=== PATIENT | female | born 1990 | race Caucasian/White ===

== ENCOUNTER → 2021-12-05 08:28 | Outpatient (CLI) | payer BC, SELFPAY ==
--- NOTE | ~2021-12-05 | US_ITS ---
EXAMINATION: US OB /maternal detail DATE: 12/05/2021 09:24 INDICATION: Second trimester anatomic survey TECHNIQUE: Real-time ultrasound of the pelvis was performed. COMPARISON: None. FINDINGS: There is a single living fetus in variable presentation. The placenta is anterior and 3.4 cm from the internal cervical os. A hypoechoic area of the placenta may represent a venous obrien. The cervical le ngth is 5.2 cm. heart rate is 134 beats per minute (bpm). cardiac activity and mov ement are noted. There is a 4.9 cm fibroid of the anterior uterine body. The amniotic fluid index is subjectively normal. The following anatomy was identified as normal: 4 chamber heart 3 vessel cord cord insertion kidneys urinary bladder stomach spine diaphragm ventricles cisterna magna cerebellum The following biometric data were obtained: Biparietal diameter (BPD): 4.6 cm; head circumference (HC): 17.4 cm; abdominal circumference (AC): 14 .7 cm; femur length (FL): 3.1 cm. These measurements are concordant. Estimated weight is 316 g +/- 47 g, which correlates with the 53rd percentile when 04/26/2022 is used as estimated date of delivery. As single measurements, these parameters are each equal to the following estimated gestational ages w ith ranges of +/- 2 standard deviations: BPD: 19 weeks 6 days ( 18 weeks 1 days - 21 weeks 4 days). HC: 20 weeks 0 days ( 18 weeks 3 days - 21 weeks 3 days). AC: 20 weeks 0 days ( 17 weeks 6 days - 22 weeks 0 days). FL: 19 weeks 5 days ( 17 weeks 6 days - 21 weeks 3 days). estimated gestational age based solely on measurements from this exam is 19 weeks 6 days +/- 1 weeks 3 days. IMPRESSION: 1. Single living fetus in variable presentation. 2. Estimated weight is 316 g +/- 47 g, which correlates with the 53rd percentile when 04/26/2022 is used as estimated date of delivery. 3. Probable venous obrien of the placenta. Attention on follow-up examination is recommended. Reviewed, dictated and finalized at location B. IMPRESSION: 1. Single living fetus in variable presentation. 2. Estimated weight is 316 g +/- 47 g, which correlates with the 53rd per centile when 04/26/2022 is used as estimated date of delivery. 3. Probable venous obrien of the placenta. Attention on follow-up examination is recommended.
== END ==
PROVIDERS: PCP Obstetrics & Gynecology Gynecologic Oncology; Visit Provider Obstetrics & Gynecology Gynecologic Oncology
DX: Z36.9 Encounter for antenatal screening, unspecified (principal); Z3A.19 19 weeks gestation of pregnancy
CPT/HCPCS: 76805

== ENCOUNTER → 2023-03-29 13:48 | Outpatient (CLI) | payer BC, SELFPAY ==
--- NOTE | ~2023-03-29 | US_ITS ---
EXAMINATION: US OB /maternal detail DATE: 03/29/2023 14:25 INDICATION: Second trimester anatomic survey TECHNIQUE: Real-time ultrasound of the pelvis was performed. COMPARISON: None. FINDINGS: There is a single living fetus in variable presentation. The placenta is posterior and covers the int ernal cervical os. The measured cervical length is 5 cm. heart rate is 140 beats per minute (bp m). cardiac activity and movement are noted. The amniotic fluid index is subjectively no rmal. The following anatomy was identified as normal: 4 chamber heart 3 vessel cord cord insertion kidneys urinary bladder stomach spine diaphragm ventricles cisterna magna cerebellum The following biometric data were obtained: Biparietal diameter (BPD): 4.3 cm; head circumference (HC): 16.2 cm; abdominal circumference (AC): 13 .0 cm; femur length (FL): 2.7 cm. These measurements are concordant. Estimated weight is 240 g +/- 36 g, which correlates with the 30th percentile when 08/25/2023 is used as estimated date of delivery. As single measurements, these parameters are each equal to the following estimated gestational ages w ith ranges of +/- 2 standard deviations: BPD: 18 weeks 6 days ( 17 weeks 1 days - 20 weeks 4 days). HC: 19 weeks 0 days ( 17 weeks 4 days - 20 weeks 3 days). AC: 18 weeks 4 days ( 16 weeks 3 days - 20 weeks 4 days). FL: 18 weeks 1 days ( 16 weeks 5 days - 19 weeks 4 days). estimated gestational age based solely on measurements from this exam is 18 weeks 5 days +/- 1 weeks 2 days. IMPRESSION: 1. Single living fetus in variable presentation. 2. Estimated weight is 240 g +/- 36 g, which correlates with the 30th percentile when 08/25/2023 is used as estimated date of delivery. 3. Placenta previa. Reviewed, dictated and finalized at location B. [employer] TEACHER IMPRESSION: 1. Single living fetus in variable presentation. 2. Estimated weight is 240 g +/- 36 g, which correlates with the 30th per centile when 08/25/2023 is used as estimated date of delivery. 3. Placenta previa.
== END ==
PROVIDERS: PCP Obstetrics & Gynecology Gynecologic Oncology; Visit Provider Obstetrics & Gynecology Gynecologic Oncology
DX: Z36.9 Encounter for antenatal screening, unspecified (principal); O44.42 Low lying placenta NOS or without hemorrhage, second trimester; Z3A.18 18 weeks gestation of pregnancy
CPT/HCPCS: 76805

== ENCOUNTER → 2023-05-10 10:29 | Outpatient (CLI) | payer BC, SELFPAY ==
--- NOTE | ~2023-05-10 | US_ITS ---
EXAMINATION: US OB limited DATE: 05/10/2023 11:01 INDICATION: Placenta previa . TECHNIQUE: Real-time ultrasound of the pelvis was performed. COMPARISON: 03/29/2023 FINDINGS: There is a single living fetus in vertex presentation, longitudinal lie. The placenta is posterior/f undal and 4.9 cm from the internal os. Cervical length 3.7 cm. Minimal V-shaped funneling noted at th e internal os with depth of 5 mm, which equals approximately 6% percentage of funneling. heart rate is 133 bpm. The amniotic fluid index is subjectively normal. IMPRESSION: Single living fetus in vertex presentation. Interval resolution of the placenta previa. Minimal funneling of the internal os. Reviewed, dictated and finalized at location K. [employer] NURSE IMPRESSION: Single living fetus in vertex presentation. Interval resolution of the placenta previa. Minimal funneling of the internal o s.
== END ==
PROVIDERS: PCP Obstetrics & Gynecology; Visit Provider Obstetrics & Gynecology
DX: O44.00 Complete placenta previa NOS or without hemorrhage, unspecified trimester (principal); Z3A.00 Weeks of gestation of pregnancy not specified
CPT/HCPCS: 76815